=== PATIENT | female | born 1995 | race Caucasian/White ===

== ENCOUNTER 2017-09-13 14:15 | Emergency (ER) | payer OTHER, BC ==
[~2017-09-13] VITALS: Ht 165.1 cm; Wt 63.5 kg
[~2017-09-13 14:15] MED LIST: BUPROPION XL150 MG PO; NORCO 5-325 TA1 EACH PO; NUVARING VAGIN1 EACH VAGINAL
== END 2017-09-13 14:36 | disposition home or self-care (01) ==
LOC: ED 14:15
DX: S59.902A Unspecified injury of left elbow, initial encounter (principal); W23.0XXA Caught, crushed, jammed, or pinched between moving objects, initial encounter

== ENCOUNTER 2017-09-13 14:54 | Emergency (ER) | payer OTHER, BC ==
[~2017-09-13] VITALS: Ht 165.1 cm; Wt 63.5 kg
== END 2017-09-13 16:10 | disposition home or self-care (01) ==
LOC: ED 14:54
DX: S50.02XA Contusion of left elbow, initial encounter (principal); Z88.8 Allergy status to other drugs, medicaments and biological substances; Z91.048 Other nonmedicinal substance allergy status; W22.8XXA Striking against or struck by other objects, initial encounter; Y99.0 Civilian activity done for income or pay
CPT/HCPCS: 73080; 99283